=== PATIENT | male | born 1995 | race Caucasian/White ===

== ENCOUNTER 2020-01-12 00:30 | Emergency (ER) | payer SELFPAY ==
[~2020-01-12] VITALS: Ht 185.4 cm; Wt 115.7 kg
[~2020-01-12 00:30] MED LIST: AMOX50SU PO; CEPH250SUA PO; CODACEE120 PO; HYDACE5 PO
[2020-01-12] MEDS ORDERED: CYCL10 PO (02:39)
== END 2020-01-12 02:47 | disposition home or self-care (01) ==
LOC: ER 00:30
DX: S16.1XXA Strain of muscle, fascia and tendon at neck level, initial encounter (principal); F98.8 Other specified behavioral and emotional disorders with onset usually occurring in childhood and adolescence; F17.200 Nicotine dependence, unspecified, uncomplicated; X58.XXXA Exposure to other specified factors, initial encounter
CPT/HCPCS: 96372; 99283-25; J1885